=== PATIENT | female | born 1960 ===

== ENCOUNTER 2019-08-14 14:26 | Emergency (ER) | payer BC ==
[2019-08-14 15:09] VITALS: BP 140/88
--- NOTE | 2019-08-14 15:21 | UC ---
Respiratory Complaint HPI - HPI Summary HPI Summary: 59 y/o female presents to the urgent care c/o sinus pressure, congestion w/ yellowish nasal discharge and PND. Symptoms worse for past week w/ a dry cough and fatigue and B/L ear pressure. Cough is worse at night time. She has taken OTC medication w/o any improvement. She has PMHX HTN and has not taken her BP medication yet. Sinus pain is 4/10. Pt denies dizziness, fever, EDWARDS, SOB, chest pain, abdominal pain, N/V/D. - History of Current Complaint Chief Complaint: UCRespiratory Stated Complaint: COUGH, CONGESTION, SINUS COMPLAINT Time Seen by Provider: 08/14/19 15:20 Hx Obtained From: Patient ?: No - Menopausal Onset/Duration: Gradual Onset, Lasting Weeks - 3 weeks, Still Present, Worse Since - 1 week Timing: Constant Severity Initially: Mild Severity Currently: Moderate Pain Intensity: 4 - sinus pain Pain Scale Used: 0-10 Numeric Character: Cough: Nonproductive Aggravating Factors: Recumbent Position Alleviating Factors: OTC Meds Associated Signs And Symptoms: Positive: URI, Sinus Discomfort. Negative: Wheezing, Nasal Congestion Related History: Seasonal Allergies - Risk Factors Pulmonary Embolism Risk Factors: Negative Cardiac Risk Factors: Negative Pseudomonas Risk Factors: Negative Tuberculosis Risk Factors: Negative - Allergies/Home Medications Allergies/Adverse Reactions: Allergies Allergy/AdvReac Type Severity Reaction Status Date / Time sulfamethoxazole Allergy Rash Verified 08/14/19 15:10 [From Septra] terbinafine [From Lamisil] Allergy Rash Verified 08/14/19 15:10 trimethoprim [From Septra] Allergy Rash Verified 08/14/19 15:10 Home Medications: Home Medications Metoprolol Tartrate [Lopressor] 50 mg PO DAILY 08/14/19 [History Confirmed 08/14] PMH/Surg Hx/FS Hx/Imm Hx Previously Healthy: Yes Cardiovascular History: Hypertension - Surgical History Surgical History: Yes Surgery Procedure, Year, and Place: hysterectomy. gallbladder - Family History Known Family History: Positive: Hypertension - Social History Occupation: Employed Full-time Lives: With Family Alcohol Use: Rare Substance Use Type: None Smoking Status (MU): Never Smoked Tobacco Review of Systems All Other Systems Reviewed And Are Negative: Yes Constitutional: Positive: Negative Skin: Positive: Negative Eyes: Positive: Negative ENT: Positive: Ear Ache - B/L ear pressure, Nasal Discharge - yellowish, Sinus Congestion, Sinus Pain/Tenderness, Other - PND Respiratory: Positive: Cough - dry Cardiovascular: Positive: Negative Gastrointestinal: Positive: Negative Genitourinary: Positive: Negative Motor: Positive: Negative Neurovascular: Positive: Negative Musculoskeletal: Positive: Negative Neurological: Positive: Negative Psychological: Positive: Negative Is Patient Immunocompromised?: No Physical Exam - Summary Physical Exam Summary: Vitals: reviewed General: Well developed, well-nourished obese female patient with NAD. Head and face: Normocephalic and atraumatic, Positive tenderness over the frontal and maxillary sinuses.. Eyes: PERRLA, EOMI x 2. Normal conjunctiva. No eye discharge. ENT: RT external ear canal impacted w/ erythema unable to visualize TM. LF ear canl clear, LF TM WNL, no perforation. Nose: edematous and erythematous nasal mucosa with with yellowish discharge and erythematous mucosa. Pharynx with erythema, no exudate. Yellowish PND Neck: Supple, no JVD, no carotid bruits and no lymphadenopathy. Lungs: clear, no rales, no rhonchi, no wheezes. CVS: RRR, S1 and S2 present no murmurs or gallops appreciated. Abdomen: soft nontender with positive bowel sounds. Extremities: no edema noted. Neuro: WNL. Skin: warm and dry Triage Information Reviewed: Yes Vital Signs: Initial Vital Signs Temp 97.5 F 08/14/19 15:06 Pulse 74 08/14/19 15:06 Resp 15 08/14/19 15:06 BP 140/88 08/14/19 15:06 Pulse Ox 100 08/14/19 15:06 Respiratory Course/Dx - Course Course Of Treatment: 59 y/o female presents to the urgent care c/o sinus pressure, congestion w/ yellowish nasal discharge and PND. Symptoms worse for past week w/ a dry cough and fatigue and B/L ear pressure. Cough is worse at night time. She has taken OTC medication w/o any improvement. She has PMHX HTN and has not taken her BP medication yet. Sinus pain is 4/10. Pt denies dizziness, fever, EDWARDS, SOB, chest pain, abdominal pain, N/V/D. Hx obtained. Pt with 3 weeks of symptoms getting worse. Pt w/ RT external ear canal impacted w/ cerumen and left anterior cervical and preauricular lymphadenopathy and acute bacterial sinusitis on examination. RT ear irrigation ordered. Irrigation performed by Nurse. Pt tolerated well procedure w/o any adverse effect. RT external w/ erythema and yellowish purulent discharge, RT TM injected w/ erythema, no light reflex, no perforation. Pt w/ RT otitis externa. Pt Rx Amoxicillin PO, Cortisporin otic drops and flonase nasal spray. Tessalon PO for cough.Pt's BP is elevated today advised to decrease salt in diet, monitor BP and f/u with PCP for further management. Discharge instructions explained to Pt. Advised to Return to the clinic or PCP if symptoms do not improve.Pt understood and agreed with plan of care. - Differential Dx/Diagnosis Differential Diagnosis/HQI/PQRI: Asthma, Bronchitis, Influenza, Laryngitis, Sinusitis, Other - ear infections Provider Diagnosis: Acute bacterial sinusitis, Right ear impacted cerumen, Uncontrolled hypertension, Right otitis externa Discharge ED - Sign-Out/Discharge Documenting (check all that apply): Patient Departure - D/C home All imaging exams completed and their final reports reviewed: No Studies - Discharge Plan Condition: Stable Disposition: HOME Prescriptions: Amoxicillin PO (*) [Amoxicillin 875 MG (*)] 875 mg PO BID #20 tab Benzonatate CAP* [Tessalon 100 MG CAP*] 100 mg PO TID #21 cap Fluticasone NASAL SPRAY 50MCG* [Flonase NASAL SPRAY 50MCG*] 2 spray BOTH NARES DAILY #1 btl Neomyc/Polym/HC 1% OTIC SUSP* [Cortisporin Otic Susp 1%*] 4 drop RIGHT EAR TID # 1 btl Patient Education Materials: Sinusitis (ED), Otitis Externa (ED) Referrals: Rivas Sheppard [Primary Care Provider] - 3 Days Additional Instructions: 1- Please increase fluid intake and rest. take full course of antibiotics to avoid resistance. Take yogurts w/ probiotics or Culturelle to protect your GI system 2-Use Flonase Nasal spray as directed to help drain fluid. Also buy saline drops to clear sinuses 3-Continue take Tessalon tabs PO to alleviates cough 4- Apply Cortisporin otic drops as directed to alleviate ear infection 5-Please f/u w/ your PCP in 3 days if symptoms do not improve for further management and treatment 6- Your BP is elevated today. please decrease salt in your diet, monitor BP and if it continues to be elevated please f/u with your PCP for further management. - Billing Disposition and Condition Condition: STABLE Disposition: Home
== END 2019-08-14 16:18 | disposition home or self-care (01) ==
LOC: UCCORT 14:26
DX: J01.90 Acute sinusitis, unspecified (principal); B96.89 Other specified bacterial agents as the cause of diseases classified elsewhere; H61.21 Impacted cerumen, right ear; I10 Essential (primary) hypertension; H60.91 Unspecified otitis externa, right ear; Z79.899 Other long term (current) drug therapy; Z88.2 Allergy status to sulfonamides
CPT/HCPCS: 99213; G0463